=== PATIENT | female | born 1955 ===

== ENCOUNTER 2023-05-07 11:06 | Outpatient (OUT) | payer OTHER, SELFPAY ==
--- NOTE | 2023-05-07 | XR_ITS ---
The [address] [address] Patient Name: CAMERON BATRES MRN: [id number] date: 1955 Sex: F Assigned Patient Location: [facility] Current Patient Location: [facility] Accession/Order Number: [id number] Exam Date: 05/07/2023 11:15 Report Date: 05/07/2023 11:47 At the request of: OLIVIA BYRD Procedure: XR foot LT min 3V PROCEDURE: XR foot LT min 3V COMPARISON: None. HISTORY: LEFT FOOT PAIN FINDINGS: BONES:No acute fracture or dislocation. Mild enthesopathic spurring of the calcaneus at the Achilles and plantar insertions. 3 mm lateral subluxation of the second metatarsal relation to the intermediate cuneiform. 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 Remote osteotomy and screw placement at of the first metatarsal SOFT TISSUES:Negative. No visible soft tissue swelling. EFFUSION:None visible. OTHER: Negative. XR/XR foot LT min 3V IMPRESSION: Mild calcaneal enthesopathy Electronically authenticated by: MARYBETH OHARA Date: 05/07/2023 11:47
== END 2023-05-07 11:07 | disposition home or self-care (01) ==
PROVIDERS: Visit Provider Podiatrist Foot & Ankle Surgery
DX: M79.672 Pain in left foot (principal); M77.32 Calcaneal spur, left foot
CPT/HCPCS: 73630